=== PATIENT | male | born 1970 | race Caucasian/White ===

== ENCOUNTER 2024-02-15 07:07 | Day surgery (SDC) | payer BC ==
[2024-02-15] MEDS: Lactated Ringers 1,000 ML IV SCH (07:40)
[2024-02-15] MEDS ORDERED: fentaNYL 100 MCG/2 ML SDV ONE (08:16)
[2024-02-15] MEDS ORDERED: Propofol 200 MG/20 ML SDV ONE ×2 (08:16→09:36)
== END 2024-02-15 11:32 | disposition home or self-care (01) ==
LOC: VM.SDS 07:07
PROVIDERS: ATTEND Family Medicine
DX: Z12.11 Encounter for screening for malignant neoplasm of colon (principal); D12.6 Benign neoplasm of colon, unspecified; N52.9 Male erectile dysfunction, unspecified; E66.01 Morbid (severe) obesity due to excess calories; Z68.41 Body mass index [BMI] 40.0-44.9, adult; Z79.899 Other long term (current) drug therapy; Z88.5 Allergy status to narcotic agent
CPT/HCPCS: 00811; 45380; J2704; J3010; J7120